=== PATIENT | male | born 1960 | race Caucasian/White ===

== ENCOUNTER → 2020-04-17 | Outpatient (CLI) | payer BC ==
[~2020-04-17] MED LIST: ACID CONTROLLER20 MG PO; ALPRAZOLAM0.5 MG PO; ATENOLOL25 MG PO; DEXAMETHASONE 44 MG PO; DEXAMETHASONE4 MG PO; DRONABINOL2.5 MG PO; HYDROCHLOROTH12.5 M1 PO; IPRAT-ALBUT 0.5-3 ML INH; IPRAT-ALBUT 0.5-3 ML NEB; K-DUR TAB 20 M20 MEQ PO; KEPPRA 500 MG500 MG PO; LEVOFLOXACIN250 MG PO; LIPITOR80 MG PO; MECLIZINE HCL25 MG PO; NIACIN ER500 MG PO; PAIN RELIEF325 MG PO; ZESTRIL40 MG PO
== END ==
LOC: EXRD 12:25
DX: J44.9 Chronic obstructive pulmonary disease, unspecified (principal); I25.10 Atherosclerotic heart disease of native coronary artery without angina pectoris; R07.89 Other chest pain
CPT/HCPCS: 71046

== ENCOUNTER → 2020-05-02 | Outpatient (CLI) | payer BC, OTHER | LOC: HEART 5 11:20 | DX: I25.10 Atherosclerotic heart disease of native coronary artery without angina pectoris (principal); I34.0 Nonrheumatic mitral (valve) insufficiency; R93.1 Abnormal findings on diagnostic imaging of heart and coronary circulation | CPT/HCPCS: 93306 ==

== ENCOUNTER 2020-05-29 13:45 | Emergency (ER) | payer BC, OTHER ==
[~2020-05-29 13:45] MED LIST changes: -K-DUR TAB 20 M20 MEQ PO
[2020-05-29 14:53] LABS: RED BLOOD COUNT 2.65 M/UL (4.20-5.50); WHITE BLOOD COUNT 10.1 K/UL (4.5-11.0)
[2020-05-29 15:15] LABS: BUN/CREATININE RATIO 6 (0-10)
[2020-05-29] MEDS ORDERED: K-DUR TAB 20 M20 MEQ PO (18:15)
== END 2020-05-29 18:55 | disposition home or self-care (01) ==
LOC: ER1 13:45
PROVIDERS: Emergency Medicine
DX: E87.6 Hypokalemia (principal); J44.9 Chronic obstructive pulmonary disease, unspecified; Z85.841 Personal history of malignant neoplasm of brain; Z87.891 Personal history of nicotine dependence
CPT/HCPCS: 71046; 80053; 82550; 82553; 83735; 83874; 84484; 85025; 93005; 96365; 99285; J3480; J7030

== ENCOUNTER → 2020-06-24 | Outpatient (CLI) | payer BC, OTHER ==
[~2020-06-24] MED LIST changes: +K-DUR TAB 20 M20 MEQ PO
== END ==
LOC: CT 09:29
DX: C80.1 Malignant (primary) neoplasm, unspecified (principal); C79.31 Secondary malignant neoplasm of brain; R90.89 Other abnormal findings on diagnostic imaging of central nervous system; R91.8 Other nonspecific abnormal finding of lung field
CPT/HCPCS: 70470; 71260; Q9967

== ENCOUNTER → 2020-07-18 | Outpatient (CLI) | payer OTHER | LOC: EMI 09:57 | DX: C79.31 Secondary malignant neoplasm of brain (principal); C80.1 Malignant (primary) neoplasm, unspecified; G93.89 Other specified disorders of brain | CPT/HCPCS: 70553; A9577 ==

== ENCOUNTER 2020-07-28 16:49 | Emergency (ER) | payer OTHER ==
[2020-07-28 17:41] LABS: HEMOGLOBIN 13.8 gm/dl (14.0-17.5); RED BLOOD COUNT 4.26 M/UL (4.20-5.50); WHITE BLOOD COUNT 19.6 K/UL (4.5-11.0)
[2020-07-28 18:05] LABS: BUN/CREATININE RATIO 22 (0-10)
== END 2020-07-28 20:30 | disposition short-term general hospital (02) ==
LOC: ER1 16:49
PROVIDERS: Student in an Organized Health Care Education/Training Program
DX: G40.901 Epilepsy, unspecified, not intractable, with status epilepticus (principal); C79.31 Secondary malignant neoplasm of brain; G93.40 Encephalopathy, unspecified; R40.2430 Glasgow coma scale score 3-8, unspecified time; Z85.118 Personal history of other malignant neoplasm of bronchus and lung
CPT/HCPCS: 31500; 70450; 71045; 74018; 80053; 82550; 82553; 83605; 83874; 84484; 85025; 85610; 85730; 94002; 94760; 96374; 96375; 99285; J2060; J2704; Q2009